=== PATIENT | female | born 1960 | race Caucasian/White ===

== ENCOUNTER → 2024-11-08 | Outpatient (CLI) | payer MEDICARE, SELFPAY | END | disposition home or self-care (01) | PROVIDERS: PCP Family Medicine; Referring Provider Registered Nurse; Visit Provider Registered Nurse | DX: L03.011 Cellulitis of right finger (principal) | CPT/HCPCS: 87070; 87205 ==

== ENCOUNTER → 2024-11-13 | Outpatient (CLI) | payer MEDICARE, OTHER, SELFPAY | END | disposition home or self-care (01) | PROVIDERS: Visit Provider Student in an Organized Health Care Education/Training Program | DX: S61.210A Laceration without foreign body of right index finger without damage to nail, initial encounter (principal); X58.XXXA Exposure to other specified factors, initial encounter; F17.200 Nicotine dependence, unspecified, uncomplicated; J44.9 Chronic obstructive pulmonary disease, unspecified; K57.92 Diverticulitis of intestine, part unspecified, without perforation or abscess without bleeding; F41.9 Anxiety disorder, unspecified; F32.A Depression, unspecified | CPT/HCPCS: 11042; 99213; A9270; G0463 ==

== ENCOUNTER → 2024-11-20 | Outpatient (CLI) | payer MEDICARE, OTHER, SELFPAY | END | disposition home or self-care (01) | LOC: SWHD 08:29 | PROVIDERS: PCP Family Medicine; Referring Provider Family Medicine; Visit Provider Student in an Organized Health Care Education/Training Program | DX: S61.210A Laceration without foreign body of right index finger without damage to nail, initial encounter (principal); X58.XXXA Exposure to other specified factors, initial encounter; F17.200 Nicotine dependence, unspecified, uncomplicated; K57.92 Diverticulitis of intestine, part unspecified, without perforation or abscess without bleeding; F41.9 Anxiety disorder, unspecified; F32.A Depression, unspecified | CPT/HCPCS: 97597; A9270 ==

== ENCOUNTER → 2024-11-27 | Outpatient (CLI) | payer MEDICARE, OTHER, SELFPAY | END | disposition home or self-care (01) | LOC: SWHD 09:06 | PROVIDERS: PCP Family Medicine; Referring Provider Family Medicine; Visit Provider Student in an Organized Health Care Education/Training Program | DX: S61.210A Laceration without foreign body of right index finger without damage to nail, initial encounter (principal); X58.XXXA Exposure to other specified factors, initial encounter; F17.200 Nicotine dependence, unspecified, uncomplicated; K57.92 Diverticulitis of intestine, part unspecified, without perforation or abscess without bleeding; F32.A Depression, unspecified | CPT/HCPCS: 97597; A9270 ==

== ENCOUNTER → 2024-12-04 | Outpatient (CLI) | payer MEDICARE, BC, SELFPAY | END | disposition home or self-care (01) | LOC: SWHD 09:00 | PROVIDERS: PCP Family Medicine; Referring Provider Family Medicine; Visit Provider Student in an Organized Health Care Education/Training Program | DX: S61.210A Laceration without foreign body of right index finger without damage to nail, initial encounter (principal); X58.XXXA Exposure to other specified factors, initial encounter; F17.200 Nicotine dependence, unspecified, uncomplicated; K57.92 Diverticulitis of intestine, part unspecified, without perforation or abscess without bleeding; F32.A Depression, unspecified | CPT/HCPCS: 17250; A9270 ==

== ENCOUNTER → 2024-12-11 | Outpatient (CLI) | payer MEDICARE, BC, SELFPAY | END | disposition home or self-care (01) | LOC: SWHD 09:08 | PROVIDERS: PCP Family Medicine; Referring Provider Family Medicine; Visit Provider Student in an Organized Health Care Education/Training Program | DX: S61.210A Laceration without foreign body of right index finger without damage to nail, initial encounter (principal); X58.XXXA Exposure to other specified factors, initial encounter; F17.200 Nicotine dependence, unspecified, uncomplicated; K57.92 Diverticulitis of intestine, part unspecified, without perforation or abscess without bleeding; F32.A Depression, unspecified | CPT/HCPCS: 99213; G0463 ==

== ENCOUNTER → 2025-01-30 | Outpatient (CLI) | payer MEDICARE, BC, SELFPAY ==
--- NOTE | 2025-01-30 11:45 | XR_ITS ---
Examination: Screening digital mammography, bilateral Computer aided detection 3-D breast Tomosynthesis, bilateral Date and time of exam: January 30, 2025 1203 hours Compared to mammograms dating to September 10, 2008 Indication: Screening Technique: Nonmagnified MLO, CC views of the breasts to been obtained, reconstructed from 3-D Tomosynthesis images. R2 computer aided detection program utilized for evaluation of suspicious masses and/or abnormal calcifications. 3-D Tomosynthesis images obtained. Findings: The breasts are heterogeneously dense, which may obscure small masses 8 mm nodule inner right breast CC view 5.5 cm from the nipple, partially circumscribed, which may be present upper right breast on the MLO view Impression: BI-RADS Category 0: Incomplete: Need additional imaging evaluation 8mm nodule inner right breast CC view, 5.5 cm from the nipple, recommend follow-up spot tomographic views in her upper quadrant right breast, bilateral breast sonography to complete the workup.
--- NOTE | 2025-01-30 12:00 | XR_ITS ---
Examination: Bone densitometry Date and time of exam:January 30, 2025 1229 hours INDICATIONS: Menopause age 36 vitamin D 3 years Technique: Lumbar spine and hip total bone mineralization values of an calculated. Peak reference and age match control results have been displayed. Findings: Lumbar spine total bone mineralization is1.072 gm/cm2. This is 0.2 standard deviations above peak reference. This is 2.0 standard deviations above age-matched controls. Hip total bone mineralization is 0.669 gm/cm2 This is 2.2 standard deviations below peak reference. This is 1.0 standard deviations below age-matched controls Impression: There is normal mineralization based on lumbar spine measurements. There is osteopenia based on hip measurements
== END | disposition home or self-care (01) ==
PROVIDERS: PCP Nurse Practitioner Family; Referring Provider Nurse Practitioner Family; Visit Provider Nurse Practitioner Family
DX: Z12.31 Encounter for screening mammogram for malignant neoplasm of breast (principal); N63.12 Unspecified lump in the right breast, upper inner quadrant; M85.89 Other specified disorders of bone density and structure, multiple sites
CPT/HCPCS: 77063; 77067; 77080

== ENCOUNTER → 2025-03-27 | Outpatient (CLI) | payer MEDICARE, BC, SELFPAY ==
--- NOTE | 2025-03-27 10:00 | XR_ITS ---
Examination: Breast ultrasound complete, bilateral Date and time of exam: March 27, 2025 0945 hours, comparison March 02, 2024 INDICATIONS: Mammogram January 30, 2025 8mm nodule inner right breast 5.5 cm from the nipple Technique: Real-time grayscale ultrasonographic imaging bilateral breasts, including all 4 quadrants as well as nipple retroareolar and axillary regions. Findings: Sonographic images right breast 9:00 cyst 4 x 4 millimeter No solid nodules Sonographic images left breast No cystic or solid masses IMPRESSION: BI-RADS Category 2: Benign findings
--- NOTE | 2025-03-27 11:00 | XR_ITS ---
Examination: Diagnostic digital mammography, unilateral, right Computer aided detection 3-D breast Tomosynthesis, unilateral Date and time of exam: March 27, 2025, 1003 hours INDICATIONS: Mammogram January 30, 2025 8mm nodule inner right breast CC view, 5.5 cm from the nipple Technique: Nonmagnified MLO, CC views of the right breast have been obtained, reconstructed from 3-D Tomosynthesis images. R2 computer aided detection program utilized for evaluation of suspicious masses and/or abnormal calcifications. 3-D Tomosynthesis images obtained. Findings: The breast is heterogeneously dense, which may obscure small masses No suspicious mass is depicted on the spot compression views Impression: BI-RADS category 2: Benign findings Return to yearly follow-up mammography
== END | disposition home or self-care (01) ==
LOC: CDIM 09:35
PROVIDERS: PCP Family Medicine; Referring Provider Nurse Practitioner Family; Visit Provider Nurse Practitioner Family
DX: R92.321 Mammographic fibroglandular density, right breast (principal)
CPT/HCPCS: 76641; 77061; 77065; G0279

== ENCOUNTER → 2025-04-05 | Outpatient (CLI) | payer MEDICARE, BC, SELFPAY ==
--- NOTE | 2025-04-05 09:29 | XR_ITS ---
Examination: Lumbar spine 3 views Technique one AP lateral coned lateral lower lumbar spine 3 views Date and time: April 05, 2025, 0950 hours INDICATIONS: Lower back pain radiating to the hips after falling 2 months ago. FINDINGS: Severe osteopenia. Surgical clips upper right abdomen Mild depression superior endplate L2, L1 Moderate to advanced disc narrowing lower 3 lumbar levels IMPRESSION: Age-indeterminate mild depression superior endplates L1, L2 Consider CT scan lumbar spine follow-up to exclude acute fractures
== END | disposition home or self-care (01) ==
PROVIDERS: PCP Nurse Practitioner Family; Referring Provider Nurse Practitioner Family; Visit Provider Nurse Practitioner Family
DX: M53.9 Dorsopathy, unspecified (principal); S39.92XS Unspecified injury of lower back, sequela; W19.XXXS Unspecified fall, sequela
CPT/HCPCS: 72100

== ENCOUNTER 2025-05-03 10:32 | Emergency (ER) | payer MEDICARE, BC, SELFPAY ==
[2025-05-03 10:41] VITALS: BP 148/86; PULSE 94; RESP 18; TEMP 36.7; O2SAT 97; BMI 21.4
--- NOTE | 2025-05-03 10:46 | XR_ITS ---
Examination: CT lumbar spine, without contrast. 2-D sagittal reconstructions. 2-D coronal reconstructions. 3-D reconstructions. Date and time of exam: May 03, 2025, left and 26 hours INDICATIONS: Patient fell 3 weeks ago with injury of the lower back, lower back pain. CTDI: vol (mGy): 15.5 DLP: (mGycm): 495 Technique: Lumbar spine Multiple 1.25 mm axial sections of the lumbar spine. 2-D sagittal and coronal reconstructions have been obtained. 3-D reconstructions have been obtained. Low dose protocols were performed. One or more of the following dose reduction techniques were used; automated exposure control, adjustment of the mA and/or KV according to patient size, use of iterative reconstruction technique. Findings: Prominent osteopenia No lumbar vertebral body compression fracture. Satisfactory alignment lumbar vertebral bodies. Mild diffuse lumbar disc narrowing Lumbar pedicles laminae transverse and posterior spinous processes intact Normal lumbar disc protrusions IMPRESSION: No acute lumbar fracture
--- NOTE | 2025-05-03 10:47 | XR_ITS ---
Examination: CT pelvis without intravenous contrast. 2-D sagittal and coronal reconstructions. Date and time of exam: May 03, 2025, 1126 hours INDICATIONS: Patient fell 3 weeks ago with injury to the pelvis, bilateral hip pain CTDI: vol (mGy) : 6.53 DLP: (mGycm) : 193 Technique: Multiple 3 mm axial sections of the pelvis have been obtained with the 64 slice high resolution scanner. 2-D sagittal and coronal reconstructions. Low dose protocols were performed. One or more of the following dose reduction techniques were used; automated exposure control, adjustment of the mA and/or KV according to patient size, use of iterative reconstruction technique. Findings: Fatty infiltration throughout the liver Normal appendix No free blood in the pelvis Colonic diverticulosis Urinary bladder intact Sacral segments intact The iliac bones including acetabular regions and anterior rami intact Hips appear intact IMPRESSION: No acute hip or pelvic fracture
[2025-05-03] MEDS: KETOROLAC INJ 30 MG/ML VIAL IM (12:16)
--- NOTE | 2025-05-03 12:16 | EDNOTE_ITS ---
ED Fall Injury RME/HPI General Chief Complaint: Fall Stated Complaint: Fall 3 weeks ago, right hip, both legs Time Seen by Provider: 05/03/25 10:43 Arrival date/time: 05/03/25 10:32 64-year-old female presents to the emergency room today for complaint of lower back pain and bilateral hip pain after fall 3 weeks ago patient reports she was mopping the floor barefoot and fell Limitations: no limitations Related Data Previous Rx's ?Medication ?Instructions ?Recorded cyclobenzaprine 10 mg tablet 10 mg PO TID PRN muscle s pasm 10 05/03/25 days #30 tab-caps hydrocodone 5 mg-acetaminophen 325 1 tab PO BID PRN pa in #10 tabs 05/03/25 mg tablet Allergies Allergy/AdvReac Type Severity Reaction Status Date / Time No Known Allergies Allergy Verified 05/03/25 10:37 Review of Systems Review of Systems Systems Reviewed: All systems reviewed, normal except as documented Constitutional Constitutional: Reports system reviewed and no additional complaints, except as documented, Denies fever(s) and Denies headache(s) Eyes Eyes: Reports system reviewed and no additional complaints, except as documented and Denies blurry vision ENT Ears, Nose, Mouth, and Throat: Reports system reviewed and no additional complaints, except as documented, Denies headache(s), Denies nasal congestion and Denies nasal discharge Cardiovascular Cardiovascular: Reports system reviewed and no additional complaints, except as documented, Denies chest pain and Denies dyspnea Respiratory Respiratory: Reports system reviewed and no additional complaints, except as documented, Denies chest congestion, Denies cough and Denies dyspnea Gastrointestinal Gastrointestinal: Reports system reviewed and no additional complaints, except as documented and Denies abdominal pain Musculoskeletal Musculoskeletal: Reports system reviewed and no additional complaints, except as documented, Denies arthralgias, Denies deformity and Denies joint swelling Integumentary/Breasts Skin/Breast: Reports system reviewed and no additional complaints, except as documented and Denies rash Neurologic Neurologic: Reports system reviewed and no additional complaints, except as documented, Reports as per HPI and Denies headache(s) Past Medical History Past Medical History CARDIAC: Negative Cardiac Disorders or Congestive Heart Failure RESPIRATORY: Negative Chronic Obstructive Pulmonary Disease (COPD) or Asthma GENITOURINARY: Negative Renal Disease ENDOCRINE: Negative Diabetes Mellitus Type 1 or Diabetes Mellitus Type 2 HEMATOLOGIC: Negative Sickle Cell Disease Social History SMOKING STATUS: Current some day smoker ED Exam General Limitations: Present no limitations General appearance: Present alert and in no apparent distress Head Head exam: Present atraumatic, normocephalic and normal inspection Eye Eye exam: Present normal appearance, PERRL and EOMI; Absent conjunctival injection ENT ENT exam: Present normal exam, normal oropharynx and mucous membranes moist Neck Neck exam: Present normal inspection, full ROM and trachea midline Chest Chest inspection: Present normal inspection and symmetric chest wall rise Respiratory Respiratory exam: Present normal lung sounds bilaterally Cardiovascular Cardiovascular exam: Present regular rate, normal rhythm and normal heart sounds Abdominal Exam Abdominal exam: Present soft and normal bowel sounds; Absent distention, tenderness, guarding, rebound or rigidity Extremities Exam Extremities exam: Present normal inspection and full ROM Back Exam Back exam: Present normal inspection and full ROM Back 1 view image: 2 1. Back pain Neurological Exam Neurological exam: Present alert, oriented X3 and CN II-XII intact Psychiatric Psychiatric exam: Present normal affect and normal mood Skin Skin exam: Present warm, dry, intact and normal color Course Quality Measures none Orders Category Date Time Status CT lumbar spine wo con Stat Exams 05/03/25 10:[address] pelvis wo con Stat Exams 05/03/25 10:47 Completed Ketorolac Inj [Toradol Inj] Med 05/03/25 10:47 Discontinued 30 mg IM X1 ONE Vital Signs Vital signs: Vital Signs Temperature 98.0 F 05/03/25 10:41 Pulse Rate 94 05/03/25 10:41 Respiratory Rate 18 05/03/25 10:41 Blood Pressure 148/86 H 05/03/25 10:41 Pulse Oximetry (%) 97 05/03/25 10:41 Oxygen Delivery Method Room Air 05/03/25 10:41 O2 saturation 97% on room air within normal limits Fall MDM Narrative MDM Narrative:: 64-year-old female presents to the emergency room today for complaint of lower back pain and bilateral hip pain after fall 3 weeks ago patient reports she was mopping the floor barefoot and fell On exam patient well-appearing patient does not appear look toxic no acute distress patient walks with steady gait Patient reports no saddle anesthesia no loss of bowel or bladder Imaging obtained no acute emergent findings noted Patient discharged home in no distress to follow-up with primary care doctor in the next 24 to 48 hours and for any worsening symptoms to return to the ER immediately Patient data External records reviewed:: [facility] previous records Clinical information provided by:: patient Social determinants that could affect healthcare access:: none Patient has the following chronic illnesses:: See history How is presenting disease/condition affected by chronic disease/condition?: u neffected by Evaluation data The following diagnostics were reviewed and interpreted by me:: radiology exam(s) Lab and/or radiology exams considered but not ordered:: Radiology obtained Interpretation Summary: Reviewed by me Medications / Prescriptions Medications or Prescriptions considered but not ordered:: Given Medication administrations:: Medication Administration History Discontinued Medications Ketorolac Tromethamine (Ketorolac Inj 30 Mg/Ml Vial) 30 mg IM X1 ONE Stop: 05/03/25 10:48 Last Admin: 05/03/25 12:16 Dose: 30 mg Documented By: ED Given Consultations Consultation(s) initiated? (list below): No Diagnosis Fall Differential Diagnosis: other Most likely diagnosis given after review of the tests above:: Hip pain Admission Indicated Admission indicated?: not indicated Admission Request Was there a request for admission?: No Disposition Plan Disposition Plan: Discharge Discharge Attestation Discharge Attestation: The patient and all family members were given an opportunity to ask questions and understood the discharge instructions. Discharge instructions specifically effects, indications for sooner follow up or return to the emergency department, and the expected course of current diagnosis. Patient condition: Stable Discharge Plan Plan Patient Disposition: HOME (Self Care) Discharge Disposition comment: Stable Prescriptions/Referrals Prescriptions/Med Rec: New cyclobenzaprine 10 mg tablet 10 mg PO TID PRN (Reason: muscle spasm) 10 Days Qty: 30 0RF hydrocodone-acetaminophen 5-325 mg tablet 1 tab PO BID MDD 10 PRN (Reason: pain) Qty: 10 0RF Referrals: Becca Graham NP [Primary Care Provider] - In 1 week Problem List Clinical Impression: Acute lumbar radiculopathy Patient/Caregiver Discharge Instructions Additional Instructions: Please follow up with your primary care doctor in the next 24-48hrs for any worsening symptoms return here immediately Print Language: [place] Stand Alone Forms: Melody Award Info., Patient Portal Info Letter PA/PASTRYCOOK'S ASSISTANT Supervising Physician PA/NEELAM Supervising Physician: Dr. Belcher
== END 2025-05-03 12:28 | disposition home or self-care (01) ==
PROVIDERS: Emergency Provider Emergency Medicine; PCP Nurse Practitioner Family
DX: M54.16 Radiculopathy, lumbar region (principal)
CPT/HCPCS: 72131; 72192; 96372; 99283; J1885

== ENCOUNTER 2025-05-09 10:37 | Inpatient (IN) | payer MEDICARE, BC, SELFPAY ==
[2025-05-09] VITALS (8 sets, daily range): BP systolic 122–169; BP diastolic 63–94; PULSE 16–100; RESP 13–24; TEMP 36.5–37.2; O2SAT 95–100; BMI 21.4
--- NOTE | 2025-05-09 10:51 | XR_ITS ---
Examination: CT brain head without contrast. 2-D sagittal coronal reconstructions Date and time of exam: 05/09/2025 at 12:38 p.m. CTDI: vol (mGy): 52.2 DLP: (mGycm): 1093 Technique: Multiple CT axial sections of the brain have been obtained, 5 mm slice thickness. Contrast has not been administered. 2-D sagittal, coronal reconstructions have been obtained Low dose protocols were performed. One or more of the following dose reduction techniques were used; automated exposure control, adjustment of the mA and/or KV according to patient size, use of iterative reconstruction technique. Findings: There is very prominent extensive hemorrhagic scalp swelling anteriorly and posteriorly, right side by the left, involving extensive involvement of the base including perioral soft tissues with eyelid swelling, greater on the right. There is no evidence for skull base or calvarial fracture. No acute intra-axial or extra-axial hemorrhage, cerebral edema, midline shift or hydrocephalus. Very mild age-appropriate cerebral regional changes are present, along with probable mild sequela of chronic ischemic microangiopathy scattered throughout the white matter of both cerebral hemispheres. No intracranial mass. The posterior fossa structures are grossly intact accounting for beam hardening artifact of the patient's earrings. Impression: Severe extensive scalp and facial hemorrhagic soft tissue swelling, right-sided to the left. No skull fracture. No acute intracranial hemorrhage, mass effect or midline shift.
--- NOTE | 2025-05-09 10:51 | XR_ITS ---
Examination: CT maxillofacial, without intravenous contrast. 2-D sagittal reconstructions. 3-D reconstructions. Date and time of exam: 05/09/2025, 12:32 p.m. INDICATION: Facial pain after fall today COMPARISON: None other than concurrent head CT and CT cervical spine. CTDI: vol (mGy): 16.6 DLP: (mGycm): 307 Technique: Multiple axial images of maxillofacial region, 3.0 mm slice thickness. 2-D sagittal and coronal reconstructions. 3-D reconstructions. Low dose protocols were performed. One or more of the following dose reduction techniques were used; automated exposure control, adjustment of the mA and/or KV according to patient size, use of iterative reconstruction technique. Findings: There is extensive hemorrhagic swelling of the visualized scalp and facial soft tissues, greater on the right side. Age-indeterminate mildly displaced fracture of the anterior maxillary spine, favored to be chronic. No acute nasal bone fractures. The bilateral zygomatic arches, mandible, and bony orbits are intact. Small air pockets anterior to the right ocular globe may be entrapped within the swollen eyelid. Otherwise, no evidence for abnormal post septal orbital gas or radiodense foreign body. A small fluid level is present in the left maxillary sinus. Very small fluid level noted in the left sphenoid sinus. Mild fluid and/or mucosal hypertrophy noted within the few left-sided ethmoid air cells. Mild mucosal hypertrophy within a few right-sided ethmoid air cells and superior portions of the maxillary sinuses and the anterolateral wall of the right sphenoid sinus. Impression: Severe extensive scalp and facial hemorrhagic soft tissue swelling, right side greater than left. Age-indeterminate mildly displaced anterior maxillary spine fracture, favored to be chronic, but otherwise no definite acute maxillofacial fracture is identified. Scattered foci of fluid and mucosal hypertrophy in bilateral paranasal sinuses as described.
--- NOTE | 2025-05-09 10:51 | XR_ITS ---
Examination: CT cervical spine without contrast 2-D sagittal reconstructions 2-D coronal reconstructions 3-D reconstructions. Exam date and time: 05/09/2025 at 12:32 p.m. INDICATION: Posterior neck pain after fall COMPARISON: Concurrent CT head and facial bone study. Cervical spine radiographs 02/21/2008 CTDI:vol (mGy) 14.1 DLP: (mGycm) 303 Technique: Multiple 2 mm axial sections of the cervical spine have been obtained. The coronal and sagittal reconstructions have been obtained. 3-D reconstructions have been obtained. Low dose protocols were performed. One or more of the following dose reduction techniques were used; automated exposure control, adjustment of the mA and/or KV according to patient size, use of iterative reconstruction technique. Findings: No evidence for acute fracture or traumatic subluxation in the cervical spine. No prevertebral soft tissue swelling. Multilevel multifocal degenerative changes are present but otherwise there is no evidence for a large disc herniation or acquired high-grade central canal stenosis in the cervical spine. Age-indeterminate small right paracentral disc protrusion identified at C2-C3 contributing to mild central canal stenosis. Grade 1 degenerative related anterolisthesis of C2 over C3 is present, to a milder degree of C3 over C4. There is reversal of the normal cervical lordosis as well. Prominent broad disc osteophyte complex results in moderate to borderline high-grade central canal stenosis at C4-C5 where there is severe disc space narrowing and prominent endplate sclerosis and osteophyte formation. There is a prominent broad disc osteophyte complex at C5-C6 contributing to high-grade central canal stenosis with severe disc space narrowing and prominent endplate spondylosis including osteophytes as well. There is moderate to high-grade central canal stenosis due to prominent disc osteophyte complex at C6-C7 where there is severe disc space narrowing and prominent endplate spondylosis including osteophytes. Multilevel bilateral facet arthropathy and uncovertebral joint spurring are present, contributing to varying degrees of likely significant cervical neural foraminal stenoses bilaterally. No concerning lytic or blastic lesions are detected. There is extensive subcutaneous edema in the neck, most pronounced on the right and posteriorly. No organized hematoma in the posterior aspect of the neck. No lymphadenopathy or other masses. Limited views of the lung apices show mild subpleural fibrotic changes and minimal paraseptal emphysema, greater on the right. IMPRESSION: Negative CT cervical spine for acute fracture or traumatic listhesis. Multilevel cervical spondylosis and degenerative disc related changes, most severe from C4-C7 with significant central canal and neural foraminal stenoses. Extensive subcutaneous edema in the neck as described..
--- NOTE | 2025-05-09 10:51 | XR_ITS ---
Examination: Right elbow 3 views Technique: Elbow AP, oblique, lateral 3 views Exam date and time: May 09, 2025, 1101 hours INDICATIONS: Patient fell today with injury of the elbow, elbow pain. FINDINGS: No fracture or dislocation. No foreign body IMPRESSION: No fracture or dislocation.
[2025-05-09] MEDS: HYDROcodone/APAP 5/325 TABLET 1 TAB PO (11:08)
--- NOTE | 2025-05-09 11:21 | EKG_ITS ---
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
--- NOTE | 2025-05-09 11:21 | XR_ITS ---
CLINICAL INDICATION: Ground-level fall with chest pain today Study date and time: 05/09/2025, 12:18 p.m. TECHNIQUE: XR chest 1V COMPARISON: Chest radiographs 09/11/2007 FINDINGS: The cardiomediastinal silhouette is normal in size with mild calcific plaque at the aortic arch. No airspace opacities suggestive of pneumonia. No mass detected. No pleural effusion or pneumothorax. Degenerative changes of the skeletal structures. No apparent acute osseous abnormality. Surgical clips in the right upper quadrant are compatible with cholecystectomy. IMPRESSION: No radiographic evidence for acute cardiopulmonary abnormality. No evidence for acute displaced fracture. No significant interval change since the comparison study. - This report was generated utilizing speech recognition software. -
--- NOTE | 2025-05-09 11:23 | PD.EDHEAD ---
ED Head Injury RME/HPI General Chief complaint: Head Injury Stated complaint: FALL, HIT HEAD LAST NIGHT, SHAKEY/BLACK EYES Time Seen by Provider: 05/09/25 11:16 Arrival date/time: 05/09/25 10:37 64-year-old female patient with significant history of chronic alcohol abuse, lives alone, usually drinks 1/2 bottle of vodka per day, last drink yesterday, came in for evaluation regarding ground-level fall. Patient was inside her house, stepped on a cord, and landed on the back resulting to contusion hematoma scalp occipital area, and when the patient stand patient fall forward, resulting into raccoon eye to the right side. Patient denies any neck pain denies any chest pain. On my initial evaluation patient was noted to be unstable, unable to ambulate without holding somebody, and very shaky. Patient also was noted to be very anxious. Denies any homicidal or suicidal ideation. Denies any abdominal pain denies any pelvic pain. Denies any hip pain. Related Data Previous Rx's ?Medication ?Instructions ?Recorded cyclobenzaprine 10 mg tablet 10 mg PO TID PRN muscle spasm 10 05/03/25 days #30 tab-caps hydrocodone 5 mg-acetaminophen 325 1 tab PO BID PRN pain #10 tabs 05/03/25 mg tablet Allergies Allergy/AdvReac Type Severity Reaction Status Date / Time No Known Allergies Allergy Verified 05/09/25 10:40 Review of Systems Review of Systems Narrative Review of Systems: Review of system reviewed and within normal limits except mentioned in HPI ED Exam Narrative Physical exam: VITAL SIGNS: Reviewed. GENERAL APPEARANCE: Alert and interactive, follows commands, no acute distress, HEAD AND FACE: Contusion hematoma, skull, occipital area, with tenderness ENT: PERRL, , raccoon eye noted to the bilateral eye, worse on the right right, hard to open the eyelid due to swelling, mucous membrane moist. Able to see under right eye with forceful opening of the eyelid, no vision change bilateral eyes NECK: Supple, nontender, no nuchal rigidity. CHEST: No tenderness, no crepitus, no paradoxical movement, no retractions. LUNGS: Clear, well ventilated, symmetric, no rales, no wheezing, no ronchi, no stridor, good breath sounds bilaterally. HEART: Regular rate, regular rhythm, no murmur, no gallops. ABDOMEN: Soft, positive bowel sounds, nondistended, no guarding, nontender, no rebound, no masses, RECTAL: Deferred. GENITAL: Deferred. NEUROLOGICAL: Gross motor function intact sensory function intact, Appropriate for age. MUSCULOSKELETAL: low back nontender, full range of motion. EXTREMITIES: Nontender, full range of motion. SKIN: Color pink, dry, no rash, no lacerations, no abrasions, no contusions. LYMPHATICS: Deferred. Course Quality Measures none Orders Category Date Time Status EKG (ED ONLY) *Do not use* NOW Care 05/09/25 11:[address] cervical spine wo con Stat Exams 05/09/25 10:[address] facial bones wo con Stat Exams 05/09/25 10:[address] head/brain wo con Stat Exams 05/09/25 10:51 Completed EKG (ED Only) Stat Exams 05/09/25 11:21 Draft XR chest 1V Stat Exams 05/09/25 11:21 Completed XR elbow comp RT min 3V Stat Exams 05/09/25 10:51 Completed Alcohol, Blood Medical Stat Lab 05/09/25 11:55 Completed CBC Stat Lab 05/09/25 11:55 Completed Comprehensive Metabolic Panel Stat Lab 05/09/25 11:55 Completed Drug Screen,Urine Stat Lab 05/09/25 11:22 Ordered Lactate (Lactic Acid) Stat Lab 05/09/25 11:55 Results Magnesium Stat Lab 05/09/25 11:55 Completed Partial Thromboplastin Time Stat Lab 05/09/25 11:55 Completed Prothrombin Time with INR Stat Lab 05/09/25 11:55 Completed Troponin I Stat Lab 05/09/25 11:55 Completed Urinalysis, C/S if Indicated Stat Lab 05/09/25 11:21 Ordered HYDROcodone*/APAP 5/325 [[place] 5/325] Med 05/09/25 10:56 Discontinued 1 tab PO X1 ONE LORazepam [Ativan Inj] Med 05/09/25 11:21 Discontinued 2 mg IVP X1 ONE Magnesium Sulfate 1 gm Ivpb [Magnesium Sulfate Ivpb] Med 05/09/25 12:58 Discontinued 1 gm in 100 ml IV X1 PHENobarbital Inj 130 mg Med 05/09/25 11:22 Discontinued Sodium Chloride 0.9% Flush [NS Flush] 12 ml IVP X1 Ringers Lactated 1000 ml [Lactated Ringers] 1,000 ml Med 05/09/25 11:22 Discontinued IV 999 mls/hr Thiamine Inj [Vitamin B-1 Inj] 250 mg Med 05/09/25 12:58 Discontinued Sodium Chloride 0.9% [Ns] 100 ml IV X1 Vital Signs Vital signs: Vital Signs Temperature 99.0 F 05/09/25 10:49 Pulse Rate 100 05/09/25 10:49 Respiratory Rate 19 05/09/25 10:49 Blood Pressure 148/66 H 05/09/25 10:49 Pulse Oximetry (%) 95 05/09/25 10:49 Oxygen Delivery Method Room Air 05/09/25 10:49 Head Injury MDM Narrative MDM Narrative:: 64-year-old female patient with significant history of chronic alcohol abuse, lives alone, usually drinks 1/2 bottle of vodka per day, last drink yesterday, came in for evaluation regarding ground-level fall. Patient was inside her house, stepped on a cord, and landed on the back resulting to contusion hematoma scalp occipital area, and when the patient stand patient fall forward, resulting into raccoon eye to the right side. Patient denies any neck pain denies any chest pain. On my initial evaluation patient was noted to be unstable, unable to ambulate without holding somebody, and very shaky. Patient also was noted to be very anxious. Denies any homicidal or suicidal ideation. Denies any abdominal pain denies any pelvic pain. Denies any hip pain. CT scan of the head came back unremarkable CT scan of the neck came back unremarkable CT scan of the face came back unremarkable except for possible maxillary spine fracture which is chronic according to the radiologist. Patient's workup today is significant for slight leukocytosis 11.1 CMP unremarkable except for lactic acid 2.6 magnesium 1.5 total bili 1.6 AST of 93 ALT of 76 which could be secondary to chronic alcoholism troponin is normal alcohol level less than 3 I personally reviewed and interpreted the x-ray of this patient. There is no acute abnormalities found, no infiltrates no pneumothorax no hemothorax normal chest x-ray. Review of other structures was without significant abnormal findings also. I additionally reviewed the radiologist report and agree with the interpretation. Patient received IV fluids, ice pack was placed on the eyes, was able to forcefully open the eyelid and patient is able to see without any visual changes. Patient was also given IV phenobarbital and Ativan. Currently patient's CIWA score was 12 from 18 earlier today. Case discussed with hospitalist who admitted the patient. Patient data External records reviewed:: None Clinical information provided by:: patient Social determinants that could affect healthcare access:: alcohol use Patient has the following chronic illnesses:: Alcohol abuse How is presenting disease/condition affected by chronic disease/condition?: exacerbated by Evaluation data The following diagnostics were reviewed and interpreted by me:: lab results, radiology exam(s) and EKG tracing(s) Lab and/or radiology exams considered but not ordered:: None Interpretation Summary: EKG showed normal sinus rhythm, ventricular rate of 92 bpm, no ST segment elevation or depression noted. Medications / Prescriptions Medications or Prescriptions considered but not ordered:: None Medication administrations:: Medication Administration History Discontinued Medications Hydrocodone Bitart/Acetaminophen (Hydrocodone/Apap 5/325 Tablet) 1 tab PO X1 ONE Stop: 05/09/25 10:57 Last Admin: 05/09/25 11:08 Dose: 1 tab Documented By: Phenobarbital Sodium 130 mg/ (Sodium Chloride 12 ml) 0 mg IVP X1 ONE Stop: 05/09/25 11:23 Last Admin: 05/09/25 12:08 Dose: 130 mg Documented By: ER Lactated Ringer's (Lactated Ringers) 1,000 mls @ 999 mls/hr IV .Q1H1M ONE Stop: 05/09/25 12:22 Last Admin: 05/09/25 12:10 Dose: 999 mls/hr Documented By: ER Magnesium Sulfate/Dextrose (Magnesium Sulfate Ivpb) 1 gm in 100 mls @ 100 mls/hr IV X1 ONE Stop: 05/09/25 13:57 Thiamine HCl 250 mg/ Sodium (Chloride) 102.5 mls @ 205 mls/hr IV X1 ONE Stop: 05/09/25 13:27 Lorazepam (Lorazepam 2 Mg/Ml Vial) 2 mg IVP X1 ONE Stop: 05/09/25 11:22 Last Admin: 05/09/25 12:06 Dose: 2 mg Documented By: ER See MDM Consultations Consultation(s) initiated? (list below): No Diagnosis Differential diagnosis head injury: closed head injury and subdural hematoma Most likely diagnosis given after review of the tests above:: Raccoon eye, fall, alcohol withdrawal symptoms, scalp contusion Admission Indicated Admission indicated?: indicated Explain why admission is indicated or not indicated:: Patient is to be admitted for alcohol withdrawal symptoms Admission Request Was there a request for admission?: Yes Admission Attestation Admission request attestation: Discussed case with [Dr. Brian Olivares] from Hospitalist service regarding admission. Discussed patients ED course, exam findings, labs, and radiology results. The Hospitalist [agrees] to accept the patient for admission. Disposition Plan Disposition Plan: Admit Discharge Plan Plan Patient Disposition: Admit Acute Care w/in Hospital Prescriptions/Referrals Prescriptions/Med Rec: No Action cyclobenzaprine 10 mg tablet 10 mg PO TID PRN (Reason: muscle spasm) 10 Days Qty: 30 0RF hydrocodone-acetaminophen 5-325 mg tablet 1 tab PO BID MDD 10 PRN (Reason: pain) Qty: 10 0RF Referrals: Becca Graham PHYSICAL INTEGRATION PRACTITIONER [Primary Care Provider] - In 1 week Problem List Clinical Impression: Contusion of face, scalp and neck, Fall, Alcohol withdrawal Patient/Caregiver Discharge Instructions Print Language: Belarusian Stand Alone Forms: [facility] Award Info., Patient Portal Info Letter
[2025-05-09 12:06] LABS: Lactate (Lactic Acid) 2.6 mMol/L (0.4-2.0)
[2025-05-09] MEDS: LORazepam 2 MG/ML VIAL IVP (12:06)
[2025-05-09 12:08] LABS: Basophils # (Auto) 0.1 Thou/mm3 (0.0-0.2); Basophils % (Auto) 1 % (0-2.5); Eosinophils # (Auto) 0.0 Thou/mm3 (0.0-0.5); Eosinophils % (Auto) 0 % (0-10); Hematocrit 30.9 % (36.0-46.0); Hemoglobin 10.9 g/dL (12.0-16.0); Immature Granulocytes Auto 0.09 Thou/mm3 (0.00-0.00); Lymphocytes # (Auto) 1.5 Thou/mm3 (1.0-4.8); Lymphocytes % (Auto) 13 % (10-50); Mean Corpuscular HGB Conc 35.3 g/dl (31.0-37.0); Mean Corpuscular Hemoglobin 32.5 pg (25.0-35.0); Mean Corpuscular Volume 92 fL (80-100); Monocytes # (Auto) 1.5 Thou/mm3 (0.0-0.8); Monocytes % (Auto) 14 % (0-12); Neutrophils # (Auto) 8.0 Thou/mm3 (1.8-7.7); Neutrophils % (Auto) 72 % (37-80); Nucleated Red Blood Cell # 0.00 Thou/mm3 (0.00-0.00); Nucleated Red Blood Cell % 0 /100 WBC (0); Platelet Count 316 Thou/mm3 (140-440); RDW Standard Deviation 41.6 fL (36.4-46.3); Red Blood Count 3.35 Miln/mm3 (4.00-5.20); White Blood Count 11.1 Thou/mm3 (3.6-11.0)
[2025-05-09] MEDS: PHENobarbital Inj 130 MG, SODIUM CHLORIDE 0.9% FLUSH 12 ML IVP (12:08)
[2025-05-09] MEDS: RINGERS LACTATED 1000 ML 1,000 ML 999 ML IV (12:10)
[2025-05-09 12:28] LABS: INR 0.9 (0.9-1.3); Partial Thromboplastin Time 25.4 Seconds (22.0-36.0); Prothrombin Time 9.8 Seconds (9.0-12.2)
[2025-05-09 12:30] LABS: Alanine Aminotransferase 76 U/L (10-49); Albumin, Serum 4.9 gm/dL (3.4-4.8); Albumin/Globulin Ratio 2.7 (1.2-2.2); Alcohol, Blood Medical < 3.0 mg/dL (0-10.0); Alkaline Phosphatase 104 U/L (46-116); Anion Gap 10 (7-16); Aspartate Amino Transferase 93 U/L (0-34); BUN/Creatinine Ratio 14 Ratio (12-20); Bilirubin,Total 1.6 mg/dL (0.3-1.2); Blood Urea Nitrogen 13 mg/dL (9-23); Calcium 9.7 mg/dL (8.3-10.6); Calcium (Corrected) 9.7 mg/dL (8.5-10.1); Carbon Dioxide 23.4 mMol/L (20.0-31.0); Chloride 103 mMol/L (98-107); Creatinine (Component) 0.9 mg/dL (0.6-1.3); Estimated Creatinine Clearance 49.3 mL/min (>60); Globulin 1.8 gm/dL (2.3-3.5); Glucose 121 mg/dL (74-106); Magnesium 1.5 mg/dL (1.6-2.6); Osmolality,Calculated 273 (275-295); Potassium 4.3 mMol/L (3.4-5.1); Sodium 136 mMol/L (136-145); Total Protein 6.7 gm/dL (5.7-8.2); Troponin I < 0.002 ng/mL (0.0-0.045); eGFR > 60 See Note
--- NOTE | 2025-05-09 13:08 | PC.SS ---
SS follow up note; SS met with patient at bedside to discuss discharge plane and verify demographic information. Patient reports she lives at home with her daughter, Deena Dow and her children. Patient reports that prior coming into the emergency department she did not utilize any source of DME to assist with ambulation, patient was able to complete all ADl's independently however reports that she has had frequent falls these past weeks. Patient's PCP is Petra Borjas. Patient reported she would like to discharge to SNF due to her fall Hx. SS informed her that SS submitted to Acute rehab facilities and is pending PT evaluation. Patient verbalized understanding. At the time [facility] accepted patient as well as [facility]. SS will follow up with patient and provide choices.
[2025-05-09] MEDS: THIAMINE INJ 250 MG in SODIUM CHLORIDE 0.9% 100 ML 205 MG IV (14:59)
[2025-05-09 15:03] LABS: Reflex Lactate? Y
--- NOTE | 2025-05-09 15:11 | XR_ITS ---
Examination: CT abdomen with intravenous contrast CT pelvis with intravenous contrast 2-D coronal reconstructions 2-D sagittal reconstructions Date and time of exam: May 09, 2025, 1737 hours INDICATIONS: Patient fell today with injury of the abdomen, abdomen pain. CTDI: vol (mGy) 5.48 DLP: (mGycm) 278 Technique: Multiple axial sections of the abdomen and pelvis have been obtained. 64 slice high-resolution scanner used. 3 mm axial sections have been obtained, post intravenous injection 60 cc Isovue 370 2-D sagittal, coronal reconstructions obtained. Low dose protocols were performed. One or more of the following dose reduction techniques were used; automated exposure control, adjustment of the mA and/or KV according to patient size, use of iterative reconstruction technique. Findings: Fatty infiltration throughout the liver, no focal liver splenic or renal laceration, no perinephric hematoma Absent gallbladder No pancreatic or adrenal mass Abdominal aorta intact, no free blood in the abdomen Common bile duct 10 mm no common bile duct stones Right renal mildly prominent pelvis Negative for pneumoperitoneum Mildly fluid distended small bowel loops Distended urinary bladder which is intact Atrophic uterus No lumbar fracture Hips bones of the pelvis intact IMPRESSION: Moderate hepatomegaly with fatty infiltration throughout the liver No abdominal parenchymal laceration Abdominal aorta intact No free blood in the abdomen or pelvis
[2025-05-09 15:21] LABS: Lactic Acid, 3 HR 1.1 mMol/L (0.4-2.0)
--- NOTE | 2025-05-09 16:01 | ESHP_ITS ---
<Statement entered by Tor Foley MD - 05/23/25 07:51> I reviewed above note and agree with findings and plans. I have also personally examined the patient with medicine team and went over assessment and plan with medical team including programming intern and resident physician. <Statement entered by Dharmesh Adkins MD - 05/12/25 13:08> I have personally seen and examined the patient, agree with residents assessment and plan Patient plan of care was discussed with the attending physician, Dr. Og Adkins, PGY2 Documentation for date of: 05/09/25 HPI History of Present Illness Chief complaint: Fall with facial and elbow injuries/alcohol withdrawal History of present illness: 64-year-old female with past medical history of depression presents after a fall that occurred the previous evening. The patient tripped over a cord and fell face-first onto the floor. This resulted in significant right-sided facial and scalp soft tissue swelling. The patient also reports pain in the right elbow but denies pain in the back or hips. The patient was able to walk after the fall but noticed numbness in the face and mild pain in the elbow. No loss of consciousness or fainting occurred before or after the fall. After the fall, the patient took ibuprofen and went to sleep. Upon waking the next morning, they noted persistent facial pain and swelling and sought medical care independently. The patient had one glass of vodka the night prior but denies any alcohol consumption after the fall. They have a history of chronic alcohol use, particularly after the of their in June, during which they began drinking 3-4 drinks daily. The patient has a history of depression and has been taking Xanax (unsure of the other recent medication) for management. The patient is also being admitted for alcohol withdrawal management, as they are exhibiting symptoms of withdrawal, including shakiness. The CIWA protocol has been started for symptom management. 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 Social History: * Lives alone, with occasional visits from their son. * The patient has a history of alcohol use, especially following the of their in June. They report drinking 3-4 drinks daily since then. * Smokes about 3 cigarettes per day prior to their 's passing but has since stopped. Family History: * Unremarkable. Exam Vital Signs Temp Pulse Resp BP Pulse Ox O2 Del Method 98.2 F 88 18 122/90 H 98 Room Air 05/09/25 14:06 05/09/25 14:06 05/09/25 14:06 05/09/25 14:06 05/09/25 14:06 05/09/25 14:06 Narrative Exam General: Alert and oriented, no acute distress, cooperative. Head: Severe right-sided facial and scalp soft tissue swelling. No open lacerations. Eyes: Right eye swollen, unable to fully open, no significant redness or drainage. No scleral icterus. Left eye swollen as well but can open eye. Neck: Extensive subcutaneous edema in the neck. No jugular venous distention (JVD), no lymphadenopathy. Cardiovascular: Regular rate and rhythm, no murmurs, gallops, or rubs. Lungs: Clear to auscultation bilaterally, no wheezing or crackles. Abdomen: Soft, non-tender, no hepatosplenomegaly. Extremities: Right elbow with mild swelling and tenderness but no deformity no fracture on x-ray. Right knee swelling and erythematous. Neurological: Alert and oriented to person, place, and time. Cranial nerves II- XII intact. No focal deficits. Skin: No rashes or bruising beyond the right face. Results: Labs 05/09/25 11:55 05/09/25 11:55 Labs: Short CBC 05/09/25 Range/Units 11:55 WBC 11.1 H (3.6-11.0) Thou/mm3 Hgb 10.9 L (12.0-16.0) g/dL Hct 30.9 L (36.0-46.0) % Plt Count 316 (140-440) Thou/mm3 BMP 05/09/25 11:55 Sodium 136 Potassium 4.3 Chloride 103 Carbon Dioxide 23.4 BUN 13 Creatinine 0.9 Glucose 121 H Calcium 9.7 Cardiac Enzymes 05/09/25 Range/Units 11:55 Troponin I < 0.002 (0.0-0.045) ng/mL Liver Function 05/09/25 Range/Units 11:55 Total Bilirubin 1.6 H (0.3-1.2) mg/dL AST 93 H (0-34) U/L ALT 76 H (10-49) U/L Alkaline Phosphatase 104 (46-116) U/L Albumin 4.9 H (3.4-4.8) gm/dL Quality Measures Quality Measures none Advance care planning discussed with:: patient Medications Home Medications and Allergies Allergies Allergy/AdvReac Type Severity Reaction Status Date / Time No Known Allergies Allergy Verified 05/09/25 10:40 Visit Medications Acetaminophen (Acetaminophen 325 Mg Tablet) 650 mg PO Q6H PRN PRN Reason: Fever >100.4 Stop: 06/08/25 15:51 Hydrocodone Bitart/Acetaminophen (Hydrocodone/Apap 5/325 Tablet) 1 tab PO Q4HR PRN PRN Reason: PAIN SCALE 7-10 (Severe Stop: 05/14/25 15:51 Chlordiazepoxide HCl (Chlordiazepoxide Hcl 25 Mg Capsule) 25 mg PO Q12HR [facility] Stop: 05/14/25 20:59 Diazepam (Diazepam Inj 5 Mg/Ml Vial 2 Ml) 10 mg IVP X1 PRN PRN Reason: Breakthrough Agitation Diazepam (Diazepam Inj 5 Mg/Ml Vial 2 Ml) 10 mg IVP Q2HR PRN PRN Reason: CIWA SCORE 20-25 Stop: 05/14/25 15:44 Diazepam (Diazepam Inj 5 Mg/Ml Vial 2 Ml) 5 mg IVP Q2HR PRN PRN Reason: CIWA SCORE 16-19 Stop: 05/14/25 15:44 Folic Acid (Folic Acid 1 Mg Tablet) 1 mg PO BID [facility] Stop: 05/14/25 20:59 Sodium Chloride (Ns) 1,000 mls @ 80 mls/hr IV .[id number] [facility] Stop: 05/10/25 16:56 Ibuprofen (Ibuprofen Tab 600 Mg Tablet) 600 mg PO Q6H PRN PRN Reason: Pain Scale 1-6 Stop: 06/08/25 15:51 Lorazepam (Lorazepam 0.5 Mg Tablet) 2 mg PO Q4HR PRN PRN Reason: CIWA SCORE 12-15 Stop: 05/14/25 15:44 Lorazepam (Lorazepam 0.5 Mg Tablet) 0.5 mg PO Q4HR PRN PRN Reason: CIWA Score 2-6 Stop: 05/14/25 15:44 Lorazepam (Lorazepam 0.5 Mg Tablet) 1 mg PO Q4HR PRN PRN Reason: CIWA SCORE 7-11 Stop: 05/14/25 15:44 Thiamine HCl (Thiamine 100 Mg Tablet) 100 mg PO BID [facility] Stop: 05/14/25 20:59 Discontinued Medications Hydrocodone Bitart/Acetaminophen (Hydrocodone/Apap 5/325 Tablet) 1 tab PO X1 ONE Stop: 05/09/25 10:57 Last Admin: 05/09/25 11:08 Dose: 1 tab Phenobarbital Sodium 130 mg/ (Sodium Chloride 12 ml) 0 mg IVP X1 ONE Stop: 05/09/25 11:23 Last Admin: 05/09/25 12:08 Dose: 130 mg Lactated Ringer's (Lactated Ringers) 1,000 mls @ 999 mls/hr IV .Q1H1M ONE Stop: 05/09/25 12:22 Last Infusion: 05/09/25 14:10 Dose: Infused Magnesium Sulfate/Dextrose (Magnesium Sulfate Ivpb) 1 gm in 100 mls @ 100 mls/hr IV X1 ONE Stop: 05/09/25 13:57 Last Admin: 05/09/25 15:33 Dose: 100 mls/hr Thiamine HCl 250 mg/ Sodium (Chloride) 102.5 mls @ 205 mls/hr IV X1 ONE Stop: 05/09/25 13:27 Last Infusion: 05/09/25 15:30 Dose: Infused Lorazepam (Lorazepam 2 Mg/Ml Vial) 2 mg IVP X1 ONE Stop: 05/09/25 11:22 Last Admin: 05/09/25 12:06 Dose: 2 mg Thiamine HCl (Thiamine 100 Mg Tablet) 100 mg PO BID [facility] Stop: 06/08/25 20:59 Assessment & Plan Plan 64-year-old female with a history of chronic alcohol use, presenting with mild alcohol withdrawal symptoms (shakiness) following a fall, resulting in significant right-sided facial trauma, right elbow injury, cervical spondylosis, mild anemia, and elevated liver enzymes likely related to alcohol use. # Alcohol withdrawal (WA protocol) The patient is experiencing alcohol withdrawal symptoms, including shakiness, and is admitted for management with the [facility] protocol. History of chronic alcohol use and presents with mild withdrawal symptoms, such as shakiness. Given the last drink was the night prior, they are at risk for further withdrawal symptoms. CIWA protocol is being initiated for safe management, and withdrawal symptoms will be monitored closely. Plan: * Continue CIWA protocol and administer benzodiazepines per scores. * Thiamine and folic acid for prevention of Wernicke-Korsakoff syndrome. * Continue Librium 25 twice daily * Monitor for signs of severe withdrawal (e.g., seizures, delirium). * Encourage supportive care and hydration. # Facial trauma and soft tissue swelling The patient sustained facial trauma with right-sided facial and scalp swelling but no fractures. Monitoring is necessary to ensure no worsening symptoms such as visual changes or increasing pain. Plan: * Ice compresses for swelling reduction and pain management with ibuprofen. * Elevate head while sleeping to reduce swelling. * Reassess swelling in 24 hours; consider imaging if symptoms worsen. # Right elbow injury Mild soft tissue injury to the elbow with no fractures on imaging. Plan: * Ice and elevation for swelling. * Reassess elbow in 24 hours for changes in pain or range of motion. # Cervical spondylosis and subcutaneous edema The cervical spine shows chronic degenerative changes (spondylosis) with some stenosis. Mild subcutaneous edema is likely due to trauma; no immediate signs of nerve compression. Plan: * Monitor for signs of cervical myelopathy (weakness, numbness). * Pain management with NSAIDs and rest. # Mild anemia Anemia is likely due to poor nutrition and chronic alcohol use. No active bleeding is evident. Plan: * Monitor hemoglobin and hematocrit. # Transaminitis Elevated liver enzymes suggest liver stress, likely due to chronic alcohol consumption. Plan: * Continue monitoring AST/ALT daily. * Avoid hepatotoxic medications and school counsellor the patient on alcohol cessation. * Provide supportive care for liver function. Health Maintenance: Disposition: Admit for observation and alcohol withdrawal management. Feeding: Regular diet. Thromboprophylaxis: SCDs GI Prophylaxis: PPI Code Status: Full code. ----- Plan discussed with attending physician Dr. Foley and senior resident Dr. Lucille Lawson MD PGY-1 Internal Medicine
[2025-05-09 16:31] LABS: Vitamin B12 595 pg/mL (211-911)
[2025-05-09] MEDS: SODIUM CHLORIDE 0.9% 1000 ML 1,000 ML 80 ML IV (16:45)
[2025-05-09 16:50] LABS: Thyroid Stimulating Hormone 0.37 uIU/mL (0.55-4.78)
[2025-05-09] MEDS: Magnesium Sulfate 4 GM Ivpb 4 GM/50 ML BAG IV (17:21)
--- NOTE | 2025-05-09 19:23 | PC.NURSE ---
MD Dean was informed of patient's right eye being swollen and unable to be opened. He stated to continue with ice compressions on eye as ordered.
[2025-05-09] MEDS: FOLIC ACID 1 MG TABLET PO (20:14)
[2025-05-09] MEDS: THIAMINE 100 MG TABLET PO (20:14)
[2025-05-09 22:10] LABS: Collection Type, Urine Clean Catch; WBC,Urine 0 /hpf (0-5)
[2025-05-09] MEDS: DIAZEPAM INJ 5 MG/ML VIAL 2 ML IVP (22:10)
[2025-05-09 22:21] LABS: Bilirubin,Urine Negative (Negative); Blood,Urine Negative (Negative); Clarity,Urine Clear (Clear/Hazy); Color,Urine Colorless (Lt Yel-Yel); Culture Indicated,Urine Not Indicated; Glucose, Urine Negative (Negative); Hyaline Casts,Urine < 1 /hpf (0-1); Ketones,Urine Negative (Negative); Leukocyte Esterase,Urine Negative (Negative); Nitrite,Urine Negative (Negative); PH,Urine 6.0 (5.0-7.0); Protein,Urine Negative (Neg - Trace); RBC,Urine < 1 /hpf (0-3); Specific Gravity,Urine 1.014 (1.001-1.035); Squamous Epithelial Cell,Urine < 1 /hpf (0-5); Urobilinogen,Urine Negative mg/dL (0.0-1.0)
[2025-05-09 22:31] LABS: Amphetamine/Methamp Scrn,U Negative (Negative); Barbiturate Screen,Urine Positive (Negative); Benzodiazepines Screen,Urine Positive (Negative); Benzoylecgonine Screen, Ur Negative (Negative); Fentanyl Screen,Urine Negative (Negative); Opiate Screen,Urine Negative (Negative); THC Screen,Urine Negative (Negative)
[2025-05-10] VITALS (7 sets, daily range): BP systolic 120–145; BP diastolic 73–89; PULSE 78–96; RESP 17–19; TEMP 36.3–37; O2SAT 95–98; BMI 22.8
[2025-05-10] MEDS: DIAZEPAM INJ 5 MG/ML VIAL 2 ML IVP ×5 (00:58→23:01)
--- NOTE | 2025-05-10 03:32 | PC.NURSE ---
Attempted to do med rec, however, patient is unsure on exact dosages of home medications. She stated she would ask her son to bring home meds in the AM.
[2025-05-10] MEDS: SODIUM CHLORIDE 0.9% 1000 ML 1,000 ML 80 ML IV (04:00)
[2025-05-10 06:25] LABS: Basophils # (Auto) 0.1 Thou/mm3 (0.0-0.2); Basophils % (Auto) 1 % (0-2.5); Eosinophils # (Auto) 0.1 Thou/mm3 (0.0-0.5); Eosinophils % (Auto) 1 % (0-10); Hematocrit 27.1 % (36.0-46.0); Hemoglobin 9.4 g/dL (12.0-16.0); Immature Granulocytes Auto 0.08 Thou/mm3 (0.00-0.00); Lymphocytes # (Auto) 1.3 Thou/mm3 (1.0-4.8); Lymphocytes % (Auto) 14 % (10-50); Mean Corpuscular HGB Conc 34.7 g/dl (31.0-37.0); Mean Corpuscular Hemoglobin 32.6 pg (25.0-35.0); Mean Corpuscular Volume 94 fL (80-100); Monocytes # (Auto) 1.0 Thou/mm3 (0.0-0.8); Monocytes % (Auto) 10 % (0-12); Neutrophils # (Auto) 6.9 Thou/mm3 (1.8-7.7); Neutrophils % (Auto) 74 % (37-80); Nucleated Red Blood Cell # 0.00 Thou/mm3 (0.00-0.00); Nucleated Red Blood Cell % 0 /100 WBC (0); Platelet Count 297 Thou/mm3 (140-440); RDW Standard Deviation 42.5 fL (36.4-46.3); Red Blood Count 2.88 Miln/mm3 (4.00-5.20); White Blood Count 9.4 Thou/mm3 (3.6-11.0)
[2025-05-10 07:05] LABS: Alanine Aminotransferase 52 U/L (10-49); Albumin, Serum 3.9 gm/dL (3.4-4.8); Albumin/Globulin Ratio 2.1 (1.2-2.2); Alkaline Phosphatase 90 U/L (46-116); Anion Gap 7 (7-16); Aspartate Amino Transferase 58 U/L (0-34); BUN/Creatinine Ratio 12 Ratio (12-20); Bilirubin,Total 1.0 mg/dL (0.3-1.2); Blood Urea Nitrogen 6 mg/dL (9-23); Calcium 8.2 mg/dL (8.3-10.6); Calcium (Corrected) 8.3 mg/dL (8.5-10.1); Carbon Dioxide 25.4 mMol/L (20.0-31.0); Chloride 105 mMol/L (98-107); Creatinine (Component) 0.5 mg/dL (0.6-1.3); Estimated Creatinine Clearance 88.7 mL/min (>60); Globulin 1.9 gm/dL (2.3-3.5); Glucose 91 mg/dL (74-106); Magnesium 2.2 mg/dL (1.6-2.6); Osmolality,Calculated 271 (275-295); Phosphorous 3.3 mg/dL (2.4-5.1); Potassium 3.5 mMol/L (3.4-5.1); Sodium 137 mMol/L (136-145); Total Protein 5.8 gm/dL (5.7-8.2); eGFR > 60 See Note
[2025-05-10 07:18] LABS: Cardiac Risk Estimate 1.8 RATIO (3.7-5.6); Cholesterol 163 mg/dL (132-200); HDL Cholesterol 93 mg/dL (40-60); LDL Cholesterol,Calculated 56 mg/dL (0-130); Triglycerides 69 mg/dL (30-150)
[2025-05-10] MEDS: THIAMINE 100 MG TABLET PO ×2 (08:09→20:02)
[2025-05-10] MEDS: FOLIC ACID 1 MG TABLET PO ×2 (08:09→20:02)
[2025-05-10 09:57] LABS: Free T4 (Free Thyroxine) 1.21 ng/dL (0.89-1.76)
[2025-05-10] MEDS: IBUPROFEN TAB 600 MG TABLET PO ×2 (11:43→20:02)
--- NOTE | 2025-05-10 14:04 | ESPR_ITS ---
<Statement entered by Tor Foley MD - 05/23/25 07:57> I reviewed above note and agree with findings and plans. I have also personally examined the patient with medicine team and went over assessment and plan with medical team including sports internship and resident physician. <Statement entered by Devika Araya MD - 05/11/25 09:22> Patient was seen and examined by me personally. I have directly supervised and reviewed documentation by the team resident and agree with its findings with any exceptions or additional findings as below. Plan of care was discussed with the attending, Dr. Foley. Patient is feeling better today. Right eye swelling has decreased and patient is able to open her eyes without manually opening the lids. Vision is intact bilaterally. CIWA score remains 11 this morning. Will continue the CIWA protocol and estimate discharge in 24-48 hours with continued improvement. Devika Araya, PGY-3 Documentation for date of: 05/10/25 Subjective Subjective Interval history: Patient seen and examined this morning. Reports feeling much better today. Shakiness has improved significantly. CIWA score this morning was 11. Right eye swelling is much improved, she is now able to see from the right eye without needing to manually open it. Denies chest pain, shortness of breath, nausea, or vomiting. Expressed interest in getting up and sitting in a chair. Exam Vital Signs Temp Pulse Resp BP Pulse Ox O2 Del Method 98.3 F 92 19 144/89 H 98 Room Air 05/10/25 12:00 05/10/25 12:00 05/10/25 12:00 05/10/25 12:00 05/10/25 12:00 05/10/25 12:00 Narrative Exam General: Alert and oriented, no acute distress, cooperative. Head: Severe right-sided facial and scalp soft tissue swelling. No open lacerations. Eyes: Right eye swollen, improved able to slightly open, no drainage. No scleral icterus. Left eye swollen as well but can open eye. Neck: Extensive subcutaneous edema in the neck. No jugular venous distention (JVD), no lymphadenopathy. Cardiovascular: Regular rate and rhythm, no murmurs, gallops, or rubs. Lungs: Clear to auscultation bilaterally, no wheezing or crackles. Abdomen: Soft, non-tender, no hepatosplenomegaly. Extremities: Right elbow with mild swelling and tenderness but no deformity no fracture on x-ray. Right knee swelling and erythematous. Neurological: Alert and oriented to person, place, and time. Cranial nerves II- XII intact. No focal deficits. Objective Labs 05/10/25 05:43 05/10/25 05:43 Labs: Laboratory Results - last 24 hr 05/09/25 05/09/25 05/09/25 11:55 15:17 21:58 WBC RBC Hgb Hct MCV MCH MCHC RDW Std Deviation Plt Count Neut % (Auto) Lymph % (Auto) [place] % (Auto) Eos % (Auto) Baso % (Auto) Neut # (Auto) Lymph # (Auto) [place] # (Auto) Eos # (Auto) Baso # (Auto) Immature Gran # (Auto) Absolute Nucleated RBC Immature Gran % Nucleated RBC % Sodium Potassium Chloride Carbon Dioxide Anion Gap BUN Creatinine Estim Creat Clear Calc eGFR BUN/Creatinine Ratio Glucose Calculated Osmolality Lactic Acid 1.1 Calcium Corrected Calcium Phosphorus Magnesium Total Bilirubin AST ALT Alkaline Phosphatase Total Protein Albumin Globulin Albumin/Globulin Ratio Triglycerides Cholesterol LDL Cholesterol, Calc HDL Cholesterol Cholesterol/HDL Ratio Vitamin B12 595 TSH 0.37 L Free T4 Ur Collection Type Clean Catch Urine Color Colorless A Urine Clarity Clear Urine pH 6.0 Ur Specific [place] 1.014 Urine Protein Negative Urine Glucose (UA) Negative Urine Ketones Negative Urine Blood Negative Urine Nitrite Negative Urine Bilirubin Negative Urine Urobilinogen (Auto) Negative Ur Leukocyte Esterase Negative Urine RBC < 1 Urine WBC 0 Ur Squamous Epith Cells < 1 Urine Bacteria None Hyaline Casts < 1 Ur Culture Indicated? Not Indicated Urine Opiates Screen Negative Urine Fentanyl Screen Negative Ur Barbiturates Screen Positive A U Amphetamin/Meth Scrn Negative U Benzodiazepines Scrn Positive A U Cocaine Metab Screen Negative U Marijuana (THC) Screen Negative 05/10/25 05:43 WBC 9.4 RBC 2.88 L Hgb 9.4 L Hct 27.1 L MCV 94 MCH 32.6 MCHC 34.7 RDW Std Deviation 42.5 Plt Count 297 Neut % (Auto) 74 Lymph % (Auto) 14 [place] % (Auto) 10 Eos % (Auto) 1 Baso % (Auto) 1 Neut # (Auto) 6.9 Lymph # (Auto) 1.3 [place] # (Auto) 1.0 H Eos # (Auto) 0.1 Baso # (Auto) 0.1 Immature Gran # (Auto) 0.08 H Absolute Nucleated RBC 0.00 Immature Gran % 1 H Nucleated RBC % 0 Sodium 137 Potassium 3.5 D Chloride 105 Carbon Dioxide 25.4 Anion Gap 7 BUN 6 L Creatinine 0.5 L Estim Creat Clear Calc 88.7 eGFR > 60 BUN/Creatinine Ratio 12 Glucose 91 Calculated Osmolality 271 L Lactic Acid Calcium 8.2 L D Corrected Calcium 8.3 L Phosphorus 3.3 Magnesium 2.2 Total Bilirubin 1.0 D AST 58 H ALT 52 H Alkaline Phosphatase 90 Total Protein 5.8 Albumin 3.9 D Globulin 1.9 L Albumin/Globulin Ratio 2.1 Triglycerides 69 Cholesterol 163 LDL Cholesterol, Calc 56 HDL Cholesterol 93 H Cholesterol/HDL Ratio 1.8 L Vitamin B12 TSH Free T4 1.21 Ur Collection Type Urine Color Urine Clarity Urine pH Ur Specific [place] Urine Protein Urine Glucose (UA) Urine Ketones Urine Blood Urine Nitrite Urine Bilirubin Urine Urobilinogen (Auto) Ur Leukocyte Esterase Urine RBC Urine WBC Ur Squamous Epith Cells Urine Bacteria Hyaline Casts Ur Culture Indicated? Urine Opiates Screen Urine Fentanyl Screen Ur Barbiturates Screen U Amphetamin/Meth Scrn U Benzodiazepines Scrn U Cocaine Metab Screen U Marijuana (THC) Screen Quality Measures Quality Measures VTE prophylaxis Advance care planning discussed with:: patient Assessment & Plan Assessment Current Active Medications: Generic Name Dose Route Start Last Admin Trade Name Freq PRN Reason Stop Dose Admin Acetaminophen 650 mg 05/09/25 15:52 Acetaminophen 325 Mg Tablet PO 06/08/25 15:51 Q6H PRN Fever >100.4 Hydrocodone Bitart/Acetaminophen 1 tab 05/09/25 15:52 Hydrocodone/Apap 5/325 Tablet PO 05/14/25 15:51 Q4HR PRN PAIN SCALE 7-10 (Severe Chlordiazepoxide HCl 25 mg 05/09/25 21:00 05/10/25 08:09 Chlordiazepoxide Hcl 25 Mg Capsule PO 05/14/25 20:59 25 mg Q12HR SHIELA Administration Diazepam 10 mg 05/09/25 15:45 Diazepam Inj 5 Mg/Ml Vial 2 Ml IVP X1 PRN Breakthrough Agitation Diazepam 10 mg 05/09/25 15:45 Diazepam Inj 5 Mg/Ml Vial 2 Ml IVP 05/14/25 15:44 Q2HR PRN CIWA SCORE 20-25 Diazepam 5 mg 05/09/25 15:45 05/10/25 04:00 Diazepam Inj 5 Mg/Ml Vial 2 Ml IVP 05/14/25 15:44 5 mg Q2HR PRN Administration CIWA SCORE 16-19 Folic Acid 1 mg 05/09/25 21:00 05/10/25 08:09 Folic Acid 1 Mg Tablet PO 05/14/25 20:59 1 mg BID SHIELA Administration Sodium Chloride 1,000 mls @ 80 mls/hr 05/09/25 15:57 05/10/25 04:00 Ns IV 05/10/25 16:56 80 mls/hr .[id number] SHIELA Administration Ibuprofen 600 mg 05/09/25 15:52 05/10/25 11:43 Ibuprofen Tab 600 Mg Tablet PO 06/08/25 15:51 600 mg Q6H PRN Administration Pain Scale 1-6 Lorazepam 2 mg 05/09/25 15:45 05/10/25 11:52 Lorazepam 0.5 Mg Tablet PO 05/14/25 15:44 2 mg Q4HR PRN Administration CIWA SCORE 12-15 Lorazepam 0.5 mg 05/09/25 15:45 Lorazepam 0.5 Mg Tablet PO 05/14/25 15:44 Q4HR PRN CIWA Score 2-6 Lorazepam 1 mg 05/09/25 15:45 05/10/25 08:09 Lorazepam 0.5 Mg Tablet PO 05/14/25 15:44 1 mg Q4HR PRN Administration CIWA SCORE 7-11 Thiamine HCl 100 mg 05/09/25 21:00 05/10/25 08:09 Thiamine 100 Mg Tablet PO 05/14/25 20:59 100 mg BID SHIELA Administration Plan 64-year-old female with chronic alcohol use admitted for alcohol withdrawal, now improving on CIWA protocol with decreasing scores (18 -> 11), resolving right facial swelling with restored vision, stable mild anemia, downtrending LFTs from fatty liver, and requesting PT for mobility. # Alcohol withdrawal (CIWA protocol) The patient is experiencing alcohol withdrawal symptoms, including shakiness, and is admitted for management with the CIWA protocol. History of chronic alcohol use and presents with mild withdrawal symptoms, such as shakiness. Given the last drink was the night prior to admission, they are at risk for further withdrawal symptoms. CIWA protocol is being initiated for safe management, and withdrawal symptoms will be monitored closely. Improving; CIWA score trending down from 18 -> 16 -> 11 this morning. Plan: * Continue CIWA protocol and administer benzodiazepines per scores. * Thiamine and folic acid for prevention of Wernicke-Korsakoff syndrome. * Continue Librium 25 twice daily * Monitor for signs of severe withdrawal (e.g., seizures, delirium). * Encourage supportive care and hydration. # Facial trauma and soft tissue swelling The patient sustained facial trauma with right-sided facial and scalp swelling but no fractures. Marked improvement in right eye swelling; vision restored without manual opening. Monitoring is necessary to ensure no worsening symptoms such as visual changes or increasing pain. Plan: * Elevate head while sleeping to reduce swelling. * Continue cold compresses every few hours. * Monitor for pain or vision changes. # Hepatomegaly with fatty infiltration # Transaminitis Stable; AST/ALT downtrending. Likely related to alcohol consumption Plan: * Continue to monitor LFTs. * Reinforce alcohol cessation counseling # Right elbow injury Mild soft tissue injury to the elbow with no fractures on imaging. Plan: * Ice and elevation for swelling. * Reassess elbow in 24 hours for changes in pain or range of motion. # Cervical spondylosis and subcutaneous edema The cervical spine shows chronic degenerative changes (spondylosis) with some stenosis. Mild subcutaneous edema is likely due to trauma; no immediate signs of nerve compression. Plan: * Monitor for signs of cervical myelopathy (weakness, numbness). * Pain management with NSAIDs and rest. # Mild anemia Anemia is likely due to poor nutrition and chronic alcohol use. No active bleeding is evident. Plan: * Monitor hemoglobin and hematocrit. # Hypothyroidism, unspecified Asymptomatic; may represent subclinical hyperthyroidism. Plan: * Follow up free T4 results. Health Maintenance: Disposition: Admit for observation and alcohol withdrawal management. Feeding: Regular diet. Thromboprophylaxis: SCDs GI Prophylaxis: PPI Code Status: Full code. ----- Plan discussed with attending physician Dr. Foley and senior resident Dr. Quiana Lawson MD PGY-1 Internal Medicine
--- NOTE | 2025-05-10 14:48 | PC.PT ---
Patient is safe to ambulate to the bathroom and in the halls with a FWW and 1 staff assist. RN made aware.
--- NOTE | 2025-05-10 15:22 | PC.SS ---
TELEGRAPH INSPECTOR confirmed that patient will discharge home. Patient informed TELEGRAPH INSPECTOR desire to decline Acute Rehab and SNF. PT recommending a walker and outpatient physical therapy.
[2025-05-11] VITALS (7 sets, daily range): BP systolic 108–137; BP diastolic 53–81; PULSE 72–93; RESP 14–18; TEMP 36.1–36.8; O2SAT 96–99; BMI 22.8
[2025-05-11 06:46] LABS: Basophils # (Auto) 0.1 Thou/mm3 (0.0-0.2); Basophils % (Auto) 1 % (0-2.5); Eosinophils # (Auto) 0.2 Thou/mm3 (0.0-0.5); Eosinophils % (Auto) 2 % (0-10); Hematocrit 26.8 % (36.0-46.0); Hemoglobin 9.2 g/dL (12.0-16.0); Immature Granulocytes Auto 0.16 Thou/mm3 (0.00-0.00); Lymphocytes # (Auto) 1.7 Thou/mm3 (1.0-4.8); Lymphocytes % (Auto) 22 % (10-50); Mean Corpuscular HGB Conc 34.3 g/dl (31.0-37.0); Mean Corpuscular Hemoglobin 32.5 pg (25.0-35.0); Mean Corpuscular Volume 95 fL (80-100); Monocytes # (Auto) 0.9 Thou/mm3 (0.0-0.8); Monocytes % (Auto) 12 % (0-12); Neutrophils # (Auto) 4.7 Thou/mm3 (1.8-7.7); Neutrophils % (Auto) 61 % (37-80); Nucleated Red Blood Cell # 0.00 Thou/mm3 (0.00-0.00); Nucleated Red Blood Cell % 0 /100 WBC (0); Platelet Count 283 Thou/mm3 (140-440); RDW Standard Deviation 42.2 fL (36.4-46.3); Red Blood Count 2.83 Miln/mm3 (4.00-5.20); White Blood Count 7.8 Thou/mm3 (3.6-11.0)
[2025-05-11 07:25] LABS: Alanine Aminotransferase 45 U/L (10-49); Albumin, Serum 3.9 gm/dL (3.4-4.8); Albumin/Globulin Ratio 2.4 (1.2-2.2); Alkaline Phosphatase 80 U/L (46-116); Anion Gap 6 (7-16); Aspartate Amino Transferase 54 U/L (0-34); BUN/Creatinine Ratio 12 Ratio (12-20); Bilirubin,Total 0.8 mg/dL (0.3-1.2); Blood Urea Nitrogen 6 mg/dL (9-23); Calcium 8.8 mg/dL (8.3-10.6); Calcium (Corrected) 8.9 mg/dL (8.5-10.1); Carbon Dioxide 24.1 mMol/L (20.0-31.0); Chloride 107 mMol/L (98-107); Creatinine (Component) 0.5 mg/dL (0.6-1.3); Estimated Creatinine Clearance 88.7 mL/min (>60); Globulin 1.6 gm/dL (2.3-3.5); Glucose 92 mg/dL (74-106); Magnesium 1.9 mg/dL (1.6-2.6); Osmolality,Calculated 271 (275-295); Phosphorous 3.3 mg/dL (2.4-5.1); Potassium 3.4 mMol/L (3.4-5.1); Sodium 137 mMol/L (136-145); Total Protein 5.5 gm/dL (5.7-8.2); eGFR > 60 See Note
[2025-05-11] MEDS: IBUPROFEN TAB 600 MG TABLET PO ×2 (07:51→14:19)
[2025-05-11] MEDS: THIAMINE 100 MG TABLET PO ×2 (09:10→20:14)
[2025-05-11] MEDS: FOLIC ACID 1 MG TABLET PO ×2 (09:10→20:13)
--- NOTE | 2025-05-11 11:30 | ESPR_ITS ---
<Statement entered by Tor Foley MD - 05/23/25 07:57> I reviewed above note and agree with findings and plans. I have also personally examined the patient with medicine team and went over assessment and plan with medical team including qa intern and resident physician. Documentation for date of: 05/11/25 Subjective Subjective Interval history: Patient seen and examined this morning. Reports feeling overall better but still experiencing some shakiness. CIWA overnight was 16, for which she received an additional 5 mg of diazepam IV. Shakiness improved compared to yesterday. Denies chest pain, shortness of breath, nausea, or vomiting. Eating and drinking well. Right facial swelling and periorbital edema significantly improved, now able to see from right eye without assistance. Exam Vital Signs Temp Pulse Resp BP Pulse Ox O2 Del Method 97.9 F 88 18 129/70 98 Room Air 05/11/25 11:15 05/11/25 11:15 05/11/25 11:15 05/11/25 11:15 05/11/25 11:15 05/11/25 11:15 Narrative Exam General: Alert, oriented ?3, mild tremor noted. HEENT: Right-sided facial swelling improved, vision intact, no erythema or drainage. Cardiac: RRR, no murmurs. Lungs: Clear to auscultation bilaterally. Abdomen: Soft, non-tender, no hepatomegaly. Neuro: No focal deficits, mild tremor persists, improved agitation. Extremities: Ambulating with FWW and 1 assist, no edema. Skin: Warm, dry, no rash or new bruising. Objective Labs 05/11/25 04:34 05/11/25 04:34 Labs: Laboratory Results - last 24 hr 05/11/25 04:34 WBC 7.8 RBC 2.83 L Hgb 9.2 L Hct 26.8 L MCV 95 MCH 32.5 MCHC 34.3 RDW Std Deviation 42.2 Plt Count 283 Neut % (Auto) 61 Lymph % (Auto) 22 [place] % (Auto) 12 Eos % (Auto) 2 Baso % (Auto) 1 Neut # (Auto) 4.7 Lymph # (Auto) 1.7 [place] # (Auto) 0.9 H Eos # (Auto) 0.2 Baso # (Auto) 0.1 Immature Gran # (Auto) 0.16 H Absolute Nucleated RBC 0.00 Immature Gran % 2 H Nucleated RBC % 0 Sodium 137 Potassium 3.4 Chloride 107 Carbon Dioxide 24.1 Anion Gap 6 L BUN 6 L Creatinine 0.5 L Estim Creat Clear Calc 88.7 eGFR > 60 BUN/Creatinine Ratio 12 Glucose 92 Calculated Osmolality 271 L Calcium 8.8 Corrected Calcium 8.9 Phosphorus 3.3 Magnesium 1.9 Total Bilirubin 0.8 AST 54 H ALT 45 Alkaline Phosphatase 80 Total Protein 5.5 L Albumin 3.9 Globulin 1.6 L Albumin/Globulin Ratio 2.4 H Quality Measures Quality Measures VTE prophylaxis Advance care planning discussed with:: patient Assessment & Plan Assessment Current Active Medications: Generic Name Dose Route Start Last Admin Trade Name Freq PRN Reason Stop Dose Admin Acetaminophen 650 mg 05/09/25 15:52 Acetaminophen 325 Mg Tablet PO 06/08/25 15:51 Q6H PRN Fever >100.4 Hydrocodone Bitart/Acetaminophen 1 tab 05/09/25 15:52 Hydrocodone/Apap 5/325 Tablet PO 05/14/25 15:51 Q4HR PRN PAIN SCALE 7-10 (Severe Chlordiazepoxide HCl 25 mg 05/09/25 21:00 05/11/25 09:10 Chlordiazepoxide Hcl 25 Mg Capsule PO 05/14/25 20:59 25 mg Q12HR SHIELA Administration Diazepam 10 mg 05/09/25 15:45 Diazepam Inj 5 Mg/Ml Vial 2 Ml IVP X1 PRN Breakthrough Agitation Diazepam 10 mg 05/09/25 15:45 Diazepam Inj 5 Mg/Ml Vial 2 Ml IVP 05/14/25 15:44 Q2HR PRN CIWA SCORE 20-25 Diazepam 5 mg 05/09/25 15:45 05/10/25 22:04 Diazepam Inj 5 Mg/Ml Vial 2 Ml IVP 05/14/25 15:44 5 mg Q2HR PRN Administration CIWA SCORE 16-19 Folic Acid 1 mg 05/09/25 21:00 05/11/25 09:10 Folic Acid 1 Mg Tablet PO 05/14/25 20:59 1 mg BID SHIELA Administration Ibuprofen 600 mg 05/09/25 15:52 05/11/25 07:51 Ibuprofen Tab 600 Mg Tablet PO 06/08/25 15:51 600 mg Q6H PRN Administration Pain Scale 1-6 Lorazepam 2 mg 05/09/25 15:45 05/10/25 11:52 Lorazepam 0.5 Mg Tablet PO 05/14/25 15:44 2 mg Q4HR PRN Administration CIWA SCORE 12-15 Lorazepam 0.5 mg 05/09/25 15:45 05/11/25 04:58 Lorazepam 0.5 Mg Tablet PO 05/14/25 15:44 0.5 mg Q4HR PRN Administration CIWA Score 2-6 Lorazepam 1 mg 05/09/25 15:45 05/11/25 09:55 Lorazepam 0.5 Mg Tablet PO 05/14/25 15:44 1 mg Q4HR PRN Administration CIWA SCORE 7-11 Thiamine HCl 100 mg 05/09/25 21:00 05/11/25 09:10 Thiamine 100 Mg Tablet PO 05/14/25 20:59 100 mg BID SHIELA Administration Plan 64-year-old female with chronic alcohol use admitted for alcohol withdrawal, still mildly shaky but improving on CIWA protocol (last score 16 -> 11), facial swelling markedly better, LFTs downtrending, and ambulating with FWW and 1 staff assist. # Alcohol withdrawal (CIWA protocol) The patient is experiencing alcohol withdrawal symptoms, including shakiness, and is admitted for management with the CIWA protocol. History of chronic alcohol use and presents with mild withdrawal symptoms, such as shakiness. Given the last drink was the night prior to admission, they are at risk for further withdrawal symptoms. CIWA protocol is being initiated for safe management, and withdrawal symptoms will be monitored closely. Improving; CIWA score trending down from 18 -> 16 -> 11 this morning. Plan: * Continue CIWA protocol and administer benzodiazepines per scores. * Thiamine and folic acid for prevention of Wernicke-Korsakoff syndrome. * Continue Librium 25 twice daily * Monitor for signs of severe withdrawal (e.g., seizures, delirium). * Encourage supportive care and hydration. # Facial trauma and soft tissue swelling The patient sustained facial trauma with right-sided facial and scalp swelling but no fractures. Marked improvement in right eye swelling; vision restored without manual opening. Monitoring is necessary to ensure no worsening symptoms such as visual changes or increasing pain. Plan: * Elevate head while sleeping to reduce swelling. * Continue cold compresses every few hours. * Monitor for pain or vision changes. # Hepatomegaly with fatty infiltration # Transaminitis Stable; AST/ALT downtrending. Likely related to alcohol consumption Plan: * Continue to monitor LFTs. * Reinforce alcohol cessation counseling # Right elbow injury Mild soft tissue injury to the elbow with no fractures on imaging. Plan: * Ice and elevation for swelling. * Reassess elbow in 24 hours for changes in pain or range of motion. # Cervical spondylosis and subcutaneous edema The cervical spine shows chronic degenerative changes (spondylosis) with some stenosis. Mild subcutaneous edema is likely due to trauma; no immediate signs of nerve compression. Plan: * Monitor for signs of cervical myelopathy (weakness, numbness). * Pain management with NSAIDs and rest. # Mild anemia Anemia is likely due to poor nutrition and chronic alcohol use. No active bleeding is evident. Plan: * Monitor hemoglobin and hematocrit. # Subclinical hyperthyroidism Low TSH 0.37 with normal free T4 1.21 Asymptomatic. Plan: * Recheck thyroid function as outpatient. Health Maintenance: Disposition: Continue inpatient CIWA management and PT mobilization. Feeding: Regular diet. Thromboprophylaxis: SCDs GI Prophylaxis: PPI Code Status: Full code. ----- Plan discussed with attending physician Dr. Og Lawson MD PGY-1 Internal Medicine
[2025-05-12] VITALS: BP 133/66; PULSE 78; PULSE 84; RESP 19; TEMP 36.1; O2SAT 98
[2025-05-12 04:00] VITALS: BP 121/71; PULSE 87; PULSE 95; RESP 20; TEMP 36.1; O2SAT 97
[2025-05-12] MEDS: IBUPROFEN TAB 600 MG TABLET PO (04:35)
[2025-05-12 05:42] LABS: Basophils # (Auto) 0.1 Thou/mm3 (0.0-0.2); Basophils % (Auto) 1 % (0-2.5); Eosinophils # (Auto) 0.2 Thou/mm3 (0.0-0.5); Eosinophils % (Auto) 3 % (0-10); Hematocrit 27.6 % (36.0-46.0); Hemoglobin 9.6 g/dL (12.0-16.0); Immature Granulocytes Auto 0.26 Thou/mm3 (0.00-0.00); Lymphocytes # (Auto) 2.0 Thou/mm3 (1.0-4.8); Lymphocytes % (Auto) 23 % (10-50); Mean Corpuscular HGB Conc 34.8 g/dl (31.0-37.0); Mean Corpuscular Hemoglobin 33.1 pg (25.0-35.0); Mean Corpuscular Volume 95 fL (80-100); Monocytes # (Auto) 0.8 Thou/mm3 (0.0-0.8); Monocytes % (Auto) 9 % (0-12); Neutrophils # (Auto) 5.2 Thou/mm3 (1.8-7.7); Neutrophils % (Auto) 61 % (37-80); Nucleated Red Blood Cell # 0.00 Thou/mm3 (0.00-0.00); Nucleated Red Blood Cell % 0 /100 WBC (0); Platelet Count 322 Thou/mm3 (140-440); RDW Standard Deviation 42.2 fL (36.4-46.3); Red Blood Count 2.90 Miln/mm3 (4.00-5.20); White Blood Count 8.6 Thou/mm3 (3.6-11.0)
[2025-05-12 06:04] LABS: Alanine Aminotransferase 43 U/L (10-49); Albumin, Serum 4.1 gm/dL (3.4-4.8); Albumin/Globulin Ratio 2.6 (1.2-2.2); Alkaline Phosphatase 78 U/L (46-116); Anion Gap 6 (7-16); Aspartate Amino Transferase 49 U/L (0-34); BUN/Creatinine Ratio 12 Ratio (12-20); Bilirubin,Total 0.7 mg/dL (0.3-1.2); Blood Urea Nitrogen 7 mg/dL (9-23); Calcium 9.2 mg/dL (8.3-10.6); Calcium (Corrected) 9.2 mg/dL (8.5-10.1); Carbon Dioxide 25.8 mMol/L (20.0-31.0); Chloride 108 mMol/L (98-107); Creatinine (Component) 0.6 mg/dL (0.6-1.3); Estimated Creatinine Clearance 73.9 mL/min (>60); Globulin 1.6 gm/dL (2.3-3.5); Glucose 102 mg/dL (74-106); Magnesium 1.8 mg/dL (1.6-2.6); Osmolality,Calculated 277 (275-295); Phosphorous 4.3 mg/dL (2.4-5.1); Potassium 3.8 mMol/L (3.4-5.1); Sodium 140 mMol/L (136-145); Total Protein 5.7 gm/dL (5.7-8.2); eGFR > 60 See Note
[2025-05-12 07:39] VITALS: PULSE 85
[2025-05-12 08:00] VITALS: BP 139/74; PULSE 83; RESP 23; TEMP 36.1; O2SAT 96
[2025-05-12] MEDS: FOLIC ACID 1 MG TABLET PO (08:56)
[2025-05-12] MEDS: THIAMINE 100 MG TABLET PO (08:56)
[2025-05-12] MEDS: HYDROcodone/APAP 5/325 TABLET 1 TAB PO (09:01)
--- NOTE | 2025-05-12 11:30 | PC.SS ---
Per GME resident Dr. Adkins patient will d/c home today. SW followed up with the patient to check in and provided substance abuse resources. SW met with the patient at the bedside and introduced herself, her role, and the reason for the consult. SW discussed the limits of confidentially. Patient is alert and oriented to person, place, time, and situation. Patient verbally consented to participate in the assessment. The patient presented appropriately and cooperative with the evaluation. The patient presented with good eye contact. Patient presented with no signs of delusions, paranoia, or hallucinations at this time. Patient is Gilma Velásquez, 64 y/o Irish-speaking female residing alone at [address] [place] [address]. Patient reports that her last June, and she has been struggling with his loss. As a result, she started drinking. Patient became emotional and tearful. SW provided active listening and emotional support. Patient reports she is connected to [facility] and is seeing a Psychologist, Dr. Krishnamurthy. Patient reports hx of depression; is taking medications prescribed by CHALINO Graham. Patient denied current and hx of suicidal/homicidal ideation, visual/auditory hallucinations, and no suicide attempts. Patient acknowledged she has an alcohol problem and that she needs help. However, the patient is not interested in inpatient referral/services because she has land and animals that depend on her. Patient reports being interested in outpatient resources. Patient reports she will work on herself, try to stay busy, and go to the gym. Patient reports good family support from her son and daughter. SW provided the patient with community resources, mental health, and substance abuse resources.
[2025-05-12 12:00] VITALS: PULSE 80
[2025-05-12 12:20] VITALS: BP 124/84; PULSE 84; RESP 17; TEMP 35.8; O2SAT 98
--- NOTE | 2025-05-12 13:08 | ESDS_ITS ---
<Statement entered by Tor Foley MD - 05/23/25 08:05> I reviewed above note and agree with findings and plans. I have also personally examined the patient with medicine team and went over assessment and plan with medical team including photography intern and resident physician. Planned Discharge Date 05/12/25 DS: Providers Provider Date of admission: 05/09/25 15:52 Primary care physician: Becca Graham NP Admitting Provider: Tor Foley MD Attending Provider on Admission: Tor Foley MD Consults: 05/10/25 09:31 PT [Referral Physical Therapy] Routine Comment: Physician Instructions: Attending Provider on DC: Dharmesh Adkins MD Discharging Provider: Dharmesh Adkins MD DS: Diagnosis Problem List Completed Was Problem List Reviewed/Reconciled?: Yes Hospital Course Hospital Course Hospital course: A 64-year-old female with significant past medical history of depression and anxiety presented to the hospital with chief complaints of fall. Patient reported that after her in 2023, started to drink alcohol every day, 3-4 drinks per day. On the day before admission, after drinking alcohol patient noted to have tripped over a cord and fell face first onto the floor for which she presented to the hospital with significant right-sided facial and scalp soft tissue swelling. Patient is admitted into the hospital in view of alcohol withdrawal management. Hospital course: Labs at the time of admission significant for hemoglobin 9.4, magnesium 1.5, total bilirubin 1.6, AST 93, ALT 76, TSH 0.37, free T41.21. Urinalysis did not show any abnormality. Urine toxicology tested positive for barbiturates and benzodiazepines. Cervical spine CT showed extensive subcutaneous edema in the neck without any fracture or traumatic listhesis, noted to have significant central canal and neural foraminal stenosis from C4-C7. Elbow x-ray did not show any fracture or dislocation. Face CT showed extensive hemorrhagic swelling of the visualized scalp and facial soft tissue's which is greater on the right side. Age-indeterminate mildly displaced fracture of anterior maxillary spine which is favored to be chronic. No other fractures noted. Scattered foci of fluid and mucosal hypertrophy in bilateral paranasal sinuses. Head CT showed severe extensive scalp and facial hemorrhagic soft tissue swelling, right sided to the left. No skull fracture. No acute intracranial hemorrhage, mass effect or midline shift. Abdomen/pelvis CT showed moderate hepatomegaly with fatty infiltration throughout the liver. Patient is treated with thiamine, fluids, folate during the hospital stay. Transaminitis slowly resolved. On CIWA protocol during the hospitalization. Extensive counseling was done on alcohol cessation and recommended to follow-up on outpatient basis with the PCP for alcohol Anonymous groups Patient is discharged to home with the following medications and recommendations -Follow-up with PCP within 1 week of discharge. If you do not have appointment, please follow-up with the [facility] with Dr. Adkins. Call [phone] to make an appointment. -Recommended to stop alcohol completely -Take Thiamine 100mg once daily and B complex once daily -Continue rest of the home medication -Follow up with your PCP before resuming Alprazolam -Return to ED if symptoms persist or return # Alcohol withdrawal (CIWA protocol) # Facial trauma and soft tissue swelling # Hepatomegaly with fatty infiltration # Transaminitis # Right elbow injury # Cervical spondylosis and subcutaneous edema # Mild anemia # Subclinical hyperthyroidism Patient plan of care was discussed with the attending physician, Dr. Og Adkins, PGY2 Time Spent with Patient Time attestation: Total time spent providing and/or coordinating discharge services: Time spent: Greater than 30 minutes Exam Vital Signs Temp Pulse Resp BP Pulse Ox O2 Del Method 97.0 F 83 23 H 139/74 H 96 Room Air 05/12/25 08:00 05/12/25 08:00 05/12/25 08:00 05/12/25 08:00 05/12/25 08:00 05/11/25 16:00 Narrative Exam General: Awake. HEENT: Normocephalic, atraumatic, mucous membranes moist. Heart: Regular rate and rhythm, no murmurs. Lungs: Clear to auscultation with no wheezing or crackles. Abdomen: Soft, nondistended, nontender, positive bowel sounds. ?No guarding or rebound tenderness. Neurologic: Alert and oriented x3, no gross neurological deficit, and patient able to move all 4 extremities. Extremities: No edema. Skin: Significant bruising noted on face and upper part of the chest, right elbow. Discharge Plan Plan Patient Disposition: HOME (Self Care) Patient condition on transfer: Stable Care Plan Goals: -Follow-up with PCP within 1 week of discharge. If you do not have appointment, please follow-up with the [facility] with Dr. Adkins. Call [phone] to make an appointment. -Recommended to stop alcohol completely -Take Thiamine 100mg once daily and B complex once daily -Continue rest of the home medication -Follow up with your PCP before resuming Alprazolam -Return to ED if symptoms persist or return Prescriptions/Referrals Prescriptions/Med Rec: New thiamine HCl (vitamin B1) 100 mg capsule 100 mg PO QDAY Qty: 30 1RF vitamin B complex-folic acid 2,000 mcg capsule 1 cap PO QDAY Qty: 30 2RF Continued trazodone 100 mg tablet 100 mg PO HS Patient Comments: TAKE 1 TABLET BY MOUTH EVERYDAY AT BEDTIME montelukast 10 mg tablet 10 mg PO QDAY Patient Comments: TAKE ONE TABLET BY MOUTH EVERY EVENING FOR BREATHING pregnenolone in methocel capsule 10 mg PO QDAY Patient Comments: pt states medication is for memory hormone Rx Instructions: take 1 capsule orally every morning Discontinued alprazolam 0.5 mg tablet 0.5 mg PO BID PRN (Reason: anxiety) Patient Comments: TAKE 1 TABLET BY MOUTH TWICE A DAY NEEDED Referrals: Becca Graham, C[employer]ER [employer]ECUTIVE [Primary Care Provider] Patient/Caregiver Discharge Instructions Education Materials: Alcohol Withdrawal: What to Expect, Bruises (Contusions), ED CONTUSION Face [w/ Wake Up] Print Language: Uzbek Stand Alone Forms: [employer] Award Info., Patient Portal Info Letter Discharge Order Discharge Orders: Discharge (Routine); Ordered 05/12/25 Ordered By: Dharmesh Adkins Quality Discharge Quality Measures VTE prophylaxis
== END 2025-05-12 14:27 | disposition home or self-care (01) | DRG 897 ==
LOC: SERX 14:45 → SERHOLD 17:08 → S2NX 05-10 05:46
PROVIDERS: Nurse Practitioner Family; Admitting Provider Internal Medicine; Emergency Provider Family Medicine; PCP Nurse Practitioner Family; Visit Provider Internal Medicine
DX: F10.139 Alcohol abuse with withdrawal, unspecified (principal); S00.03XA Contusion of scalp, initial encounter; F32.A Depression, unspecified; S00.83XA Contusion of other part of head, initial encounter; M47.812 Spondylosis without myelopathy or radiculopathy, cervical region; F17.210 Nicotine dependence, cigarettes, uncomplicated; E03.9 Hypothyroidism, unspecified; D53.9 Nutritional anemia, unspecified; E05.90 Thyrotoxicosis, unspecified without thyrotoxic crisis or storm; R74.01 Elevation of levels of liver transaminase levels; Z63.4 Disappearance and death of family member; W18.09XA Striking against other object with subsequent fall, initial encounter
CPT/HCPCS: 36415; 70450; 70486; 71045; 72125; 73080; 74177; 80053; 80061; 80307; 80320; 81001; 82607; 83605; 83735; 84100; 84439; 84443; 84484; 85025; 85610; 85730; 93005; 96361; 96365; 96366; 96375; 97162; 99284; A4216; A4649; J2060; J2560; J3360; J3411; J3475; J7030; J7050; J7120; Q9967; A9270; G0480